=== PATIENT | female | born 1995 | race Caucasian/White ===

== ENCOUNTER 2020-07-07 19:33 | Emergency (ER) | payer OTHER ==
[~2020-07-07] VITALS: Ht 162.6 cm; Wt 101.2 kg
[~2020-07-07 19:33] MED LIST: DOCU-131 PO; FAMO-79 PO; IBUP-1222 PO; PREN1TAB60 PO
[2020-07-07 20:39] LABS: BASOPHILS % (AUTO) 1 % (0-1); EOSINOPHILS % (AUTO) 2 % (1-7); LYMPHOCYTES % (AUTO) 16 % (22-44); MD NO; MEAN CORPUSCULAR HEMOGLOBIN 26.9 pg (27.0-34.8); MEAN CORPUSCULAR HGB CONC 32.9 g/dL (32.4-35.8); MEAN PLATELET VOLUME 8.6 fL (7.4-10.4); MONOCYTES % (AUTO) 7 % (2-9); NEUTROPHILS % (AUTO) 74 % (42-75); PLATELET COUNT 290 x10^3/uL (130-400); RED BLOOD COUNT 4.59 x10^6/uL (3.82-5.3); RED CELL DISTRIBUTION WIDTH 16.8 % (9.6-15.2)
[2020-07-07 20:46] LABS: ANION GAP 4 mmol/L (5-15); CALCIUM 8.7 mg/dL (8.5-10.1); CHLORIDE 109 mmol/L (98-107); CREATININE 0.72 mg/dL (0.55-1.02)
[2020-07-07] MEDS ORDERED: SODIUM CHLORIDE FLUSH 10ML SYR IVF ONE (22:30)
[2020-07-07] MEDS ORDERED: SODIUM CHLORIDE 0.9% 1,000ML IVBOLUS ONE (22:30)
[2020-07-07] MEDS ORDERED: PROPOFOL 10 MG/ML, 20ML IVPush ONE (22:30)
[2020-07-07] MEDS ORDERED: PROPOFOL 10 MG/ML, 20ML ONE ×3 (22:40→23:11)
[2020-07-08 00:18] VITALS: BP 119/68
--- NOTE | 2020-07-08 06:22 | NUR ---
700MG OF PROPOFOL GIVEN
== END 2020-07-08 00:21 | disposition home or self-care (01) ==
LOC: ED 20:03
DX: L03.313 Cellulitis of chest wall (principal); L02.91 Cutaneous abscess, unspecified; Z90.89 Acquired absence of other organs
CPT/HCPCS: 10060; 36415; 76642; 80048; 85025; 87070; 87077; 87186; 87205; 96360; 96361; 99152; 99285; J2704; J7030